=== PATIENT | female | born 1930 | race Caucasian/White ===

== ENCOUNTER 2017-01-30 06:30 | Day surgery (SDC) | payer MEDICAID, MEDICARE, OTHER ==
[2017-01-30] MEDS ORDERED: fentaNYL 100 MCG/2 ML SDV ONE (06:55)
[2017-01-30] MEDS ORDERED: Midazolam 1 MG/ML 2 ML SDV ONE (06:55)
[2017-01-30] MEDS ORDERED: Propofol 200 MG/20 ML SDV ONE (06:55)
[2017-01-30] MEDS ORDERED: Dextrose 5%-Lactated Ringers 1,000 ML IV SCH (07:00)
[2017-01-30] MEDS ORDERED: Albuterol/Ipratropium 3.0-0.5 MG/3 ML Neb Soln NEB ONE (07:30)
[2017-01-30] MEDS ORDERED: ceFAZolin 2 GM in Premix Bag 1 BAG IV ONE (08:00)
[2017-01-30] MEDS ORDERED: Linezolid 200 MG/100 ML Bag IRR ONE (08:00)
[2017-01-30] MEDS ORDERED: Bupivacaine 0.5% 50 ML MDV ONE (08:06)
[2017-01-30] MEDS ORDERED: Lidocaine 1% with EPINEPHrine 1:100,000 50 ML MDV ONE (08:06)
[2017-01-30 09:47] VITALS: BP 143/79
--- NOTE | 2017-02-06 19:04 | OR ---
DATE OF PROCEDURE: 01/30/2017 PREOPERATIVE DIAGNOSIS: Single-chamber cardiac pacemaker pulse generator at end of life. POSTOPERATIVE DIAGNOSES: 1. Single-chamber cardiac pacemaker pulse generator at end of life. 2. Superficially-located pulse generator. OPERATIVE PROCEDURES: 1. Replacement of single-chamber cardiac pacemaker pulse generator ([id number]). 2. Relocation of pacemaker pocket to deeper plane to limit possible erosion and/or infection complications ([id number]). ANESTHESIA: Local plus IV sedation. INDICATION FOR PROCEDURE: This is an 86-year-old with a single-chamber pacemaker, which is now presenting at end of life. Plan is to proceed with a pulse generator replacement. The leads have been tested and found to be satisfactory, though some intraoperative complications regarding management of leads occurs, the leads will not need to be replaced, otherwise. Potential risks including bleeding, infection, possible malfunction of the pacemaker system as well as possibility of cardiopulmonary, septic, or hemorrhagic complications leading to were discussed, and the patient wishes to proceed. Additionally, the patient has quite superficially located pacemaker pocket, which is felt to be a significant risk for either erosion and/or infection. The pocket will be relocated into a deeper plane in the chest wall with the present procedure. DETAILS OF PROCEDURE: The patient was taken to the operating room. After IV sedation was administered, the upper chest and neck areas were prepped and draped. Over the pulse generator, some local anesthetic consisting of Marcaine and lidocaine was placed and transverse incision made and carried down through the skin and subcutaneous tissue through the capsule of the pocket. The capsule was then freed up enough that the pulse generator could be pulled up, and this was then detached. Leads were not tested as they had previously been tested satisfactory, and the new pulse generator reconnected. This is a [employer], model number [id number] and immediate adequate pacing and sensing functions were noted. The upper aspect of the pacemaker pocket was then incised and the dissection then continued down to the plane behind the pectoralis major fascia. At that point, the new pocket was then bluntly created. A TyRx absorbable antibiotic envelope was then placed into the depths of the incision, and the pulse generator then placed into the new pocket. This area had been also irrigated with Zyvox-containing saline solution. The incision was then closed with 2 layers of 3-0 Vicryl stitch deep and a 4-0 Vicryl subcuticular stitch. Dressing was applied. The patient was taken to the recovery room in satisfactory condition. Efren Nair MD /[id number]
== END 2017-01-30 10:46 | disposition home or self-care (01) ==
LOC: JP.SDS 06:30
PROVIDERS: ATTEND Surgery
PROC: 0JPT0PZ Removal of Cardiac Rhythm Related Device from Trunk Subcutaneous Tissue and Fascia, Open Approach (ICD-10-PCS; principal; 2017-01-30)
PROC: 0JH604Z Insertion of Pacemaker, Single Chamber into Chest Subcutaneous Tissue and Fascia, Open Approach (ICD-10-PCS; 2017-01-30)
PROC: 0JWT0PZ Revision of Cardiac Rhythm Related Device in Trunk Subcutaneous Tissue and Fascia, Open Approach (ICD-10-PCS; 2017-01-30)
DX: Z45.010 Encounter for checking and testing of cardiac pacemaker pulse generator [battery] (principal)
CPT/HCPCS: 33222; 33227; C1786; J0690; J2020; J2704; J3010; J7042; J7620; J2250

== ENCOUNTER 2017-08-17 10:49 | Emergency (ER) | payer MEDICARE ==
--- NOTE | 2017-08-17 12:03 | EDM.PDOC ---
ED HPI GENERAL MEDICAL PROBLEM - General Chief Complaint: ENT Problem Stated Complaint: COUGH CHEST IS HURTING Time Seen by Provider: 08/17/17 11:42 Source of Information: Reports: Patient, Family History Limitations: Reports: Other (Dementia) - History of Present Illness INITIAL COMMENTS - FREE TEXT/NARRATIVE: Cait presents with her daughter today. Cait complains of general muscle and joint pain, nausea, sore throat, bilateral hear pain and increased frequency of urination. She reports one episode of vomiting yesterday. She denies change in bowel habits. - Related Data Allergies Allergy/AdvReac Type Severity Reaction Status Date / Time alendronate sodium Allergy GI Verified 08/17/17 11:23 [From Fosamax] intolerance Home Meds: Home Meds Atenolol [Tenormin] 25 mg PO BID 11/14/13 [History] Cholecalciferol (Vitamin D3) [Vitamin D3] 2,000 unit PO DAILY 11/14/13 [History] ClonazePAM [KlonoPIN] 0.125 mg PO BID 11/14/13 [History] Potassium Chloride [Klor-Con 10] 20 meq PO DAILY 11/14/13 [History] Warfarin Sodium 2 mg PO DAILY 11/14/13 [History] Furosemide [Lasix] 20 mg PO DAILY 10/31/14 [History] Isosorbide Mononitrate [Imdur] 30 mg PO DAILY 11/25/14 [History] Pantoprazole [ProTONIX] 40 mg PO DAILY 12/04/14 [History] Valsartan [Diovan] 160 mg PO BID 10/03/15 [History] Levothyroxine 25 mcg PO DAILY 08/11/16 [History] Ibuprofen 400 mg PO BID MDD pain 09/05/16 [History] predniSONE [Prednisone] 5 mg PO DAILY 09/06/16 [History] Acetaminophen [Tylenol] 650 mg PO Q4H PRN #0 tablet 09/09/16 [Rx] Albuterol [Ventolin HFA] 1 - 2 puff INH Q4HR PRN 01/28/17 [History] Polyethylene Glycol 3350 [MiraLAX] 17 gm PO DAILY 01/28/17 [History] Melatonin 5 mg PO BEDTIME PRN 01/30/17 [History] Past Medical History HEENT History: Reports: Allergic Rhinitis, Impaired Vision Cardiovascular History: Reports: Afib, Arrhythmia, High Cholesterol, Hypertension, Pacemaker, SOB on Exertion Other Cardiovascular History: Echo in [place], EF was 55 sick sinus sndrome Respiratory History: Reports: COPD, SOB Gastrointestinal History: Reports: Chronic Constipation, GERD Genitourinary History: Reports: UTI, Recurrent [employer] History: Reports: Musculoskeletal History: Reports: Arthritis, Back Pain, Chronic, Fracture, Neck Pain, Chronic, Osteoarthritis, Osteoporosis Neurological History: Reports: CVA, Neuropathy, Diabetic Psychiatric History: Reports: Anxiety, Panic Attack Endocrine/Metabolic History: Reports: Hypothyroidism, Vitamin D Deficiency Hematologic History: Reports: Anticoagulation Therapy, Blood Transfusion(s) Dermatologic History: Reports: Other (See Below) Other Dermatologic History: rash - Infectious Disease History Infectious Disease History: Reports: Chicken Pox, Measles, Mumps, Shingles - Past Surgical History Head Surgeries/Procedures: Reports: None HEENT Surgical History: Reports: Cataract Surgery, Oral Surgery, Tonsillectomy Respiratory Surgical History: Reports: None Social & Family History - Family History Family Medical History: Noncontributory Cardiac: Reports: CAD - Tobacco Use Smoking Status *Q: Never Smoker Years of Tobacco use: 10 Used Tobacco, but Quit: Yes Month Tobacco Last Used: 11/1971 Second Hand Smoke Exposure: No - Caffeine Use Caffeine Use: Reports: Coffee, Soda - Alcohol Use Days Per Week of Alcohol Use: 0 - Recreational Drug Use Recreational Drug Use: No ED ROS GENERAL - Review of Systems Review Of Systems: See Below Constitutional: Reports: Malaise, Weakness, Fatigue HEENT: Reports: Ear Pain, Throat Pain. Denies: Dental Pain, Ear Discharge, Nosebleed, Nose Pain, Rhinitis, Sinus Problem, Throat Swelling, Vertigo, Vision Change Respiratory: Denies: Shortness of Breath, Wheezing, Cough, Sputum, Hemoptysis Cardiovascular: Denies: Chest Pain, Blood Pressure Problem, Dyspnea on Exertion , Edema, Lightheadedness, Palpitations, PND, Syncope Endocrine: Reports: Fatigue GI/Abdominal: Reports: Nausea, Vomiting, Other (suprapubic pain). Denies: Bloody Stool, Constipation, Difficulty Swallowing, Distension, Stool Incontinence : Reports: Frequency, Incontinence. Denies: Dysuria, Hematuria, Urgency, Urinary Retention Musculoskeletal: Reports: Joint Pain, Muscle Pain Skin: Reports: Dryness. Denies: Rash, Erythema, Wound Neurological: Reports: Headache, Weakness, Other (Patient has a history of dementia). Denies: Numbness, Tingling Psychiatric: Reports: Confusion, Other (at times. ). Denies: Agitation, Anxiety Hematologic/Lymphatic: Reports: No Symptoms Immunologic: Reports: No Symptoms ED EXAM, GENERAL - Physical Exam Exam: See Below Free Text/Narrative:: Cait presents today with general malaise, muscle and joint pain-aching in nature for three days. She also reports bilateral ear pain, throat pain, nausea at times and one episode of vomiting. She states she has been voiding more then usual. She denies fever, chills. Exam Limited By: Other (Patient has active dementia) General Appearance: Alert, WD/WN, Mild Distress Eye Exam: Bilateral Eye: EOMI, Normal Inspection, PERRL Ears: Normal External Exam, Normal Canal, Normal TMs Ear Exam: Bilateral Ear: Auricle Normal, Canal Normal, TM normal Nose: Normal Inspection, Normal Mucosa, No Blood Throat/Mouth: Normal Voice, Other (erythema without exudate noted to pharynx.) Head: Atraumatic, Normocephalic Neck: Normal Inspection, Supple, Non-Tender, Full Range of Motion. No: Lymphadenopathy (R), Lymphadenopathy (L) Respiratory/Chest: No Respiratory Distress, No Accessory Muscle Use, Other ( Breasth sounds clear and decreased at the bases. ) Cardiovascular: Normal Peripheral Pulses, Irregularly Irregular, Other (History of atrial fibrillation, pacemaker. ) Peripheral Pulses: 2+: Radial (L), Radial (R), Dorsalis Pedis (L), Dorsalis Pedis (R) GI/Abdominal: Normal Bowel Sounds, No Organomegaly, No Distention, No Mass, Tender, Other (Tenderness noted to suprapubic area) Back Exam: Normal Inspection, Full Range of Motion. No: CVA Tenderness (R), CVA Tenderness (L), Muscle Spasm, Paraspinal Tenderness, Vertebral Tenderness Extremities: Non-Tender, No Pedal Edema, Normal Capillary Refill, Other (Skin noted to be very dry) Neurological: Alert, Slow to Respond, Other (History of dementia, patient orineted to self, situation not to date or time. ) Psychiatric: Normal Affect, Normal Mood Skin Exam: Warm Lymphatic: No Adenopathy EKG INTERPRETATION EKG Date: 08/17/17 Rhythm: A-Fib EKG Interpretation Comments: Rate controlled at 83 Course - Vital Signs Last Recorded V/S: Last Vital Signs Temp 36.8 C 08/17/17 11:30 Pulse 69 08/17/17 14:28 Resp 14 08/17/17 11:30 BP 154/73 H 08/17/17 14:28 Pulse Ox 93 L 08/17/17 11:30 - Orders/Labs/Meds Orders: Active Orders 24 hr Category Date Time Status EKG Documentation Completion [RC] ASDIRECTED Care 08/17/17 12:41 Active CULTURE STREP A CONFIRMATION [] Stat Lab 08/17/17 11:56 Results STREP SCRN A RAPID W CULT CONF [] Stat Lab 08/17/17 11:56 Results Sodium Chloride 0.9% [Normal Saline] 1,000 ml Med 08/17/17 12:45 Active IV ASDIRECTED Sodium Chloride 0.9% [Saline Flush] Med 08/17/17 12:39 Active 10 ml FLUSH ASDIRECTED PRN Saline Lock Insert [OM.PC] Routine Oth 08/17/17 12:39 Ordered EKG 12 Lead [EK] Routine Ther 08/17/17 12:40 Ordered Medication Orders Sodium Chloride (Normal Saline) 1,000 mls @ 500 mls/hr IV ASDIRECTED EVELYNE Last Admin: 08/17/17 12:48 Dose: 500 mls/hr Sodium Chloride (Saline Flush) 10 ml FLUSH ASDIRECTED PRN PRN Reason: Keep Vein Open Last Admin: 08/17/17 12:48 Dose: 10 ml Labs: Laboratory Tests 08/17/17 08/17/17 08/17/17 Range/Units 12:12 12:46 12:46 WBC 10.4 (4.5-11.0) K/uL RBC 4.74 (3.30-5.50) M/uL Hgb 15.0 D (12.0-15.0) g/dL Hct 45.0 (36.0-48.0) % MCV 95 (80-98) fL MCH 32 H (27-31) pg MCHC 33 (32-36) % Plt Count 190 (150-400) K/uL Neut % (Auto) 79 H (36-66) % Lymph % (Auto) 11 L (24-44) % [place] % (Auto) 8 H (2-6) % Eos % (Auto) 1 L (2-4) % Baso % (Auto) 0 (0-1) % Sodium 140 (140-148) mmol/L Potassium 4.1 (3.6-5.2) mmol/L Chloride 105 (100-108) mmol/L Carbon Dioxide 27 (21-32) mmol/L Anion Gap 8.1 (5.0-14.0) mmol/L BUN 13 (7-18) mg/dL Creatinine 0.9 (0.6-1.0) mg/dL Est Cr Clr Drug Dosing 34.70 mL/min Estimated GFR (MDRD) 59 L (>60) Glucose 148 H (74-106) mg/dL Calcium 8.7 (8.5-10.1) mg/dL Total Bilirubin 1.1 H D (0.2-1.0) mg/dL AST 19 (15-37) U/L ALT 17 (12-78) U/L Alkaline Phosphatase 111 (46-116) U/L Total Protein 6.6 (6.4-8.2) g/dL Albumin 3.0 L (3.4-5.0) g/dL Globulin 3.6 H (2.3-3.5) g/dL Albumin/Globulin Ratio 0.8 L (1.2-2.2) Urine Color Yellow Urine Appearance Slightly cloudy Urine pH 8.0 (4.5-8.0) Ur Specific [place] 1.015 (1.008-1.030) Urine Protein Negative (NEGATIVE) mg/dL Urine Glucose (UA) Normal (NEGATIVE) mg/dL Urine Ketones Negative (NEGATIVE) mg/dL Urine Occult Blood Negative (NEGATIVE) Urine Nitrite Negative (NEGATIVE) Urine Bilirubin Negative (NEGATIVE) Urine Urobilinogen Normal (NORMAL) mg/dL Ur Leukocyte Esterase Negative (NEGATIVE) Urine RBC Not seen (0-5) Urine WBC 0-5 (0-5) Ur Epithelial Cells Moderate Amorphous Sediment Not seen Urine Bacteria Few Urine Mucus Not seen Influenza A positive Rapid strep - negative Patient and her daughter notified of test results. We will administer IV fluids, zofran. Complete additional lab work, renal function prior to administration of oseltamivir. Patient would like to go home today and return tomorrow for recheck if possible. Meds: Medications Generic Name Dose Route Start Last Admin Trade Name Freq PRN Reason Stop Dose Admin Sodium Chloride 1,000 mls @ 500 mls/hr 08/17/17 12:45 08/17/17 12:48 Normal Saline IV 500 mls/hr ASDIRECTED EVELYNE Administration Sodium Chloride 10 ml 08/17/17 12:39 08/17/17 12:48 Saline Flush FLUSH 10 ml ASDIRECTED PRN Administration Keep Vein Open Discontinued Medications Generic Name Dose Route Start Last Admin Trade Name Ish PRN Reason Stop Dose Admin Acetaminophen 1,000 mg 08/17/17 14:17 08/17/17 14:26 Tylenol Extra Strength PO 08/17/17 14:18 1,000 mg ONETIME ONE Administration Ondansetron HCl 4 mg 08/17/17 12:38 08/17/17 12:48 Zofran IVPUSH 08/17/17 12:39 4 mg ONETIME ONE Administration Oseltamivir Phosphate 30 mg 08/17/17 13:30 08/17/17 13:25 Tamiflu PO 08/17/17 13:31 30 mg ONETIME ONE Administration - Re-Assessments/Exams Free Text/Narrative Re-Assessment/Exam: 08/17/17 13:17 Will provide oseltamivir 30mg PO twice a day for 5 days due to CrCl. 08/17/17 14:52 Patient reports she feels better and would like to go home. She will be discharged with family to home. Cait will follow up with Dr. Gill tomorrow for recheck or report to the ER tomorrow to ensure she is not worsening in status. Departure - Departure Time of Disposition: 14:53 Disposition: Home, Self-Care 01 Condition: Fair Clinical Impression: Influenza A, Dehydration, Nausea - Discharge Information Referrals: Dick Gill MD [Primary Care Provider] - Forms: ED Department Discharge Additional Instructions: You are suffering from influenza A. You were given IV fluids for hydration, ondansetron for nausea, acetaminophen for pain and oseltamivir for influenza A. It is best for a loved-one or caregiver to stay with you the next 24 to 48 hours. It is best to keep yourself hydrated, eat regular meals and snacks and return for worsening. You can take Oseltamivir 30mg PO BID for 5 days (first dose given in the ER). You can take acetamonophen (tylenol) 650mg by mouth for pain/fever up to 4 times a day. You can take ondansetron 4mg PO three times a day as needed for nausea. Return for concerns, overall decrease of current function or worsening of cough , change in mental status. - My Orders Last 24 Hours: My Active Orders 08/17/17 11:56 CULTURE STREP A CONFIRMATION [RM] Stat STREP SCRN A RAPID W CULT CONF [RM] Stat 08/17/17 12:39 Sodium Chloride 0.9% [Saline Flush] 10 ml FLUSH ASDIRECTED PRN Saline Lock Insert [OM.PC] Routine 08/17/17 12:40 EKG 12 Lead [EK] Routine 08/17/17 12:41 EKG Documentation Completion [RC] ASDIRECTED 08/17/17 12:45 Sodium Chloride 0.9% [Normal Saline] 1,000 ml IV ASDIRECTED - Assessment/Plan Last 24 Hours: My Active Orders 08/17/17 11:56 CULTURE STREP A CONFIRMATION [RM] Stat STREP SCRN A RAPID W CULT CONF [RM] Stat 08/17/17 12:39 Sodium Chloride 0.9% [Saline Flush] 10 ml FLUSH ASDIRECTED PRN Saline Lock Insert [OM.PC] Routine 08/17/17 12:40 EKG 12 Lead [EK] Routine 08/17/17 12:41 EKG Documentation Completion [RC] ASDIRECTED 08/17/17 12:45 Sodium Chloride 0.9% [Normal Saline] 1,000 ml IV ASDIRECTED Assessment:: Influenza A Dehydration Nausea Plan: You are suffering from influenza A. You were given IV fluids for hydration, ondansetron for nausea, acetaminophen for pain and oseltamivir for influenza A. It is best to keep yourself hydrated, eat regular meals and snacks and return for worsening. You can take Oseltamivir 30mg PO BID for 5 days (first dose given in the ER). You can take acetamonophen (tylenol) 650mg by mouth for pain/fever up to 4 times a day. You can take ondansetron 4mg PO three times a day as needed for nausea. Return for concerns, overall decrease of current function or worsening of cough , change in mental status.
[2017-08-17] MEDS ORDERED: Ondansetron 4 MG/2 ML SDV IVPUSH ONE (12:38)
[2017-08-17] MEDS ORDERED: Sodium Chloride 0.9% 10 ML Syringe FLUSH PRN (12:39)
[2017-08-17] MEDS ORDERED: Sodium Chloride 0.9% 1,000 ML IV SCH (12:45)
[2017-08-17] MEDS ORDERED: Oseltamivir 75 MG Cap PO ONE (13:18)
[2017-08-17] MEDS ORDERED: Oseltamivir 30 MG Cap PO ONE (13:30)
[2017-08-17] MEDS ORDERED: Acetaminophen 500 MG Tab PO ONE (14:17)
[2017-08-17 14:29] VITALS: BP 154/73
== END 2017-08-17 15:19 | disposition home or self-care (01) ==
LOC: JP.ED 10:49
DX: J10.1 Influenza due to other identified influenza virus with other respiratory manifestations (principal); E86.0 Dehydration; R11.0 Nausea; I10 Essential (primary) hypertension; E78.00 Pure hypercholesterolemia, unspecified; J44.9 Chronic obstructive pulmonary disease, unspecified; K21.9 Gastro-esophageal reflux disease without esophagitis; M19.90 Unspecified osteoarthritis, unspecified site; E03.9 Hypothyroidism, unspecified; F41.0 Panic disorder [episodic paroxysmal anxiety]; Z88.8 Allergy status to other drugs, medicaments and biological substances; Z87.440 Personal history of urinary (tract) infections; Z79.01 Long term (current) use of anticoagulants; Z98.49 Cataract extraction status, unspecified eye; Z98.890 Other specified postprocedural states; Z87.891 Personal history of nicotine dependence; Z86.73 Personal history of transient ischemic attack (TIA), and cerebral infarction without residual deficits; Z79.899 Other long term (current) drug therapy
CPT/HCPCS: 36415; 80053; 81001; 85025; 87081; 87430; 87804; 93005; 96361; 96374; 99284; A9270; J2405; J7040; J7050; 93010

== ENCOUNTER 2018-01-02 16:50 | Inpatient (IN) | payer MEDICARE ==
--- NOTE | 2018-01-02 17:06 | EDM.PDOC ---
<Pratima Flaherty - Last Filed: 01/02/18 18:03> ED HPI GENERAL MEDICAL PROBLEM - General Chief Complaint: Lower Extremity Injury/Pain Stated Complaint: WEAK,NOT FEELING WELL Time Seen by Provider: 01/02/18 17:01 Source of Information: Reports: Patient History Limitations: Reports: No Limitations - History of Present Illness INITIAL COMMENTS - FREE TEXT/NARRATIVE: pt arrived with pain in her rt hip and in her left elebow. Onset: Other (pt fell a week ago and there was concern that she had a hairline fracture in her pelvis. . She was unable to bear weight on the rt leg. ) Duration: Day(s):, Getting Worse Location: Reports: Upper Extremity, Left, Lower Extremity, Right Associated Symptoms: Reports: Other (history of a UTI) - Related Data Allergies Allergy/AdvReac Type Severity Reaction Status Date / Time alendronate sodium Allergy GI Verified 08/17/17 11:23 [From Fosamax] intolerance Home Meds: Home Meds Atenolol [Tenormin] 25 mg PO BID 11/14/13 [History] Cholecalciferol (Vitamin D3) [Vitamin D3] 2,000 unit PO DAILY 11/14/13 [History] ClonazePAM [KlonoPIN] 0.125 mg PO BID 11/14/13 [History] Potassium Chloride [Klor-Con 10] 20 meq PO DAILY 11/14/13 [History] Warfarin Sodium 2 mg PO DAILY 11/14/13 [History] Furosemide [Lasix] 20 mg PO DAILY 10/31/14 [History] Isosorbide Mononitrate [Imdur] 30 mg PO DAILY 11/25/14 [History] Pantoprazole [ProTONIX Granules] 40 mg PO DAILY 12/04/14 [History] Valsartan [Diovan] 160 mg PO BID 10/03/15 [History] Levothyroxine 25 mcg PO DAILY 08/11/16 [History] Ibuprofen 400 mg PO BID MDD pain 09/05/16 [History] predniSONE [Prednisone] 5 mg PO DAILY 09/06/16 [History] Acetaminophen [Tylenol] 650 mg PO Q4H PRN #0 tablet 09/09/16 [Rx] Albuterol [Ventolin HFA] 1 - 2 puff INH Q4HR PRN 01/28/17 [History] Polyethylene Glycol 3350 [MiraLAX] 17 gm PO DAILY 01/28/17 [History] Melatonin 5 mg PO BEDTIME PRN 01/30/17 [History] Past Medical History HEENT History: Reports: Allergic Rhinitis, Impaired Vision Cardiovascular History: Reports: Afib, Arrhythmia, High Cholesterol, Hypertension, Pacemaker, SOB on Exertion Other Cardiovascular History: Echo in [place], EF was 55 sick sinus sndrome Respiratory History: Reports: COPD, SOB Gastrointestinal History: Reports: Chronic Constipation, GERD Genitourinary History: Reports: UTI, Recurrent EMERGENCY MEDICAL TECHNICIAN/DRIVER History: Reports: Musculoskeletal History: Reports: Arthritis, Back Pain, Chronic, Fracture, Neck Pain, Chronic, Osteoarthritis, Osteoporosis Neurological History: Reports: CVA, Neuropathy, Diabetic Psychiatric History: Reports: Anxiety, Panic Attack Endocrine/Metabolic History: Reports: Hypothyroidism, Vitamin D Deficiency Hematologic History: Reports: Anticoagulation Therapy, Blood Transfusion(s) Dermatologic History: Reports: Other (See Below) Other Dermatologic History: rash - Infectious Disease History Infectious Disease History: Reports: Chicken Pox, Measles, Mumps, Shingles - Past Surgical History Head Surgeries/Procedures: Reports: None HEENT Surgical History: Reports: Cataract Surgery, Oral Surgery, Tonsillectomy Respiratory Surgical History: Reports: None Social & Family History - Family History Family Medical History: Noncontributory Cardiac: Reports: CAD - Tobacco Use Smoking Status *Q: Never Smoker Years of Tobacco use: 10 Used Tobacco, but Quit: Yes Month Tobacco Last Used: 11/1971 Second Hand Smoke Exposure: No - Caffeine Use Caffeine Use: Reports: Coffee, Soda - Alcohol Use Days Per Week of Alcohol Use: 0 - Recreational Drug Use Recreational Drug Use: No Review of Systems - Review of Systems Review Of Systems: See Below Constitutional: Reports: No Symptoms Eyes: Reports: No Symptoms Ears: Reports: No Symptoms Nose: Reports: No Symptoms Mouth/Throat: Reports: No Symptoms Respiratory: Reports: No Symptoms Cardiovascular: Reports: No Symptoms GI/Abdominal: Reports: No Symptoms Musculoskeletal: Reports: Other (pain in the rt hip and in the left elebow. ) Skin: Reports: No Symptoms Neurological: Reports: No Symptoms, Other ( slight confusion) Psychiatric: Reports: No Symptoms ED EXAM, GENERAL - Physical Exam Exam: See Below Free Text/Narrative:: pt has sig swelling of her rt elebow and she has alot of pain when she moves it. She has pain in the rt hip and pelvis AREA AND SHE IS NOT ABLE TO BEAR WEIGHT. Exam Limited By: No Limitations General Appearance: Alert, Anxious, Moderate Distress, Other (PUPILS EQUAL AND REACTIVE. ) Ears: Normal TMs Nose: Normal Inspection Throat/Mouth: Normal Inspection Head: Atraumatic Neck: Normal Inspection Respiratory/Chest: No Respiratory Distress Cardiovascular: Regular Rate, Rhythm GI/Abdominal: Soft, Non-Tender (Female) Exam: Deferred Rectal (Female) Exam: Deferred Back Exam: Normal Inspection Extremities: Other (PT HAS ALOT OF PAIN WHEN HER HIP IS MOVED ON THE RT SIDE. ) Neurological: Alert, Oriented Course - Vital Signs Last Recorded V/S: Last Vital Signs Temp 99.1 F 01/02/18 17:16 Pulse 67 01/02/18 21:12 Resp 16 01/02/18 17:16 BP 148/79 H 01/02/18 21:12 Pulse Ox 98 01/02/18 21:12 - Orders/Labs/Meds Orders: Active Orders 24 hr Category Date Time Status Elbow Min 3V Lt [CR] Stat Exams 01/02/18 17:14 Taken Hip Min 2V or 3V w Pelvis Lt [CR] Stat Exams 01/02/18 17:12 Taken Hip wo Cont Rt [CT] Stat Exams 01/02/18 17:43 Stop Req Pelvis wo Cont [CT] Stat Exams 01/02/18 17:43 Ordered UA W/MICROSCOPIC [URIN] Urgent Lab 01/02/18 17:20 Ordered Sodium Chloride 0.9% [Saline Flush] Med 01/02/18 17:25 Active 10 ml FLUSH ASDIRECTED PRN Saline Lock Insert [OM.PC] Routine Oth 01/02/18 17:25 Ordered Medication Orders Sodium Chloride (Saline Flush) 10 ml FLUSH ASDIRECTED PRN PRN Reason: Keep Vein Open Last Admin: 01/02/18 17:58 Dose: 10 ml Labs: Laboratory Tests 01/02/18 01/02/18 Range/Units 17:30 17:30 WBC 10.5 (4.5-11.0) K/uL RBC 4.29 (3.30-5.50) M/uL Hgb 13.7 (12.0-15.0) g/dL Hct 41.0 (36.0-48.0) % MCV 96 (80-98) fL MCH 32 H (27-31) pg MCHC 33 (32-36) % Plt Count 254 (150-400) K/uL Neut % (Auto) 74 H (36-66) % Lymph % (Auto) 13 L (24-44) % [place] % (Auto) 12 H (2-6) % Eos % (Auto) 1 L (2-4) % Baso % (Auto) 0 (0-1) % Sodium 135 L (140-148) mmol/L Potassium 4.7 (3.6-5.2) mmol/L Chloride 102 (100-108) mmol/L Carbon Dioxide 25 (21-32) mmol/L Anion Gap 12.7 (5.0-14.0) mmol/L BUN 12 (7-18) mg/dL Creatinine 1.0 (0.6-1.0) mg/dL Est Cr Clr Drug Dosing 30.47 mL/min Estimated GFR (MDRD) 53 L (>60) Glucose 121 H (74-106) mg/dL Calcium 9.0 (8.5-10.1) mg/dL Total Bilirubin 1.1 H (0.2-1.0) mg/dL AST 23 (15-37) U/L ALT 15 (12-78) U/L Alkaline Phosphatase 166 H (46-116) U/L Total Protein 6.1 L (6.4-8.2) g/dL Albumin 2.6 L (3.4-5.0) g/dL Globulin 3.5 (2.3-3.5) g/dL Albumin/Globulin Ratio 0.7 L (1.2-2.2) Meds: Medications Generic Name Dose Route Start Last Admin Trade Name Freq PRN Reason Stop Dose Admin Sodium Chloride 10 ml 01/02/18 17:25 01/02/18 17:58 Saline Flush FLUSH 10 ml ASDIRECTED PRN Administration Keep Vein Open Discontinued Medications Generic Name Dose Route Start Last Admin Trade Name Freq PRN Reason Stop Dose Admin Hydromorphone HCl 0.5 mg 01/02/18 17:21 01/02/18 18:02 Dilaudid IVPUSH 01/02/18 17:22 0.25 mg ONETIME ONE Administration - Re-Assessments/Exams Free Text/Narrative Re-Assessment/Exam: 01/02/18 17:52 PT ARRIVED WITH PAIN IN THE PELVIS AND RT HIP. sHE WAS NOT ABLE TO BEAR WEIGHT. pLAIN FILMS ARE DIFFICULT TO INTERPRET AND FOR THAT REASON A CAT SCAN OF THE PELVIS AND HIP WAS OBTAINED. CELLULITIS IS NOTED OF THE RT ELEBOW. 01/02/18 17:52 01/02/18 18:03 Departure - Departure Disposition: Admitted As Inpatient 67 Clinical Impression: Fracture of right inferior pubic ramus Qualifiers: Encounter type: initial encounter Fracture type: closed Qualified Code(s): S32.591A - Other specified fracture of right pubis, initial encounter for closed fracture Fracture of right superior pubic ramus Qualifiers: Encounter type: initial encounter Fracture type: closed Qualified Code(s): S32.511A - Fracture of superior rim of right pubis, initial encounter for closed fracture - Discharge Information Referrals: Dick Gill MD [Primary Care Provider] - Forms: ED Department Discharge <OfficerRd - Last Filed: 01/02/18 22:13> Course - Re-Assessments/Exams Free Text/Narrative Re-Assessment/Exam: Took over care from Dr. Flaherty at 1900 hrs. 01/02/18 21:54 Departure - Departure Time of Disposition: 22:12 Condition: Fair - Assessment/Plan Plan: Assessment Acuity = acute Site and laterality = multiple pubic rami fracture inferior and superior with possible nondisplaced fracture lateral epicondyles left elbow Etiology = secondary to fall Manifestations = pain Location of injury = Home Lab values = CBC unremarkable sodium low at 135 consistent hyponatremia, albumin low at 2.6 consistent hypoalbuminemia plain film of the left elbow reveals suspicious nondisplaced step-off cortical fracture lateral epicondyles on the left side, CT scan of the pelvis reveals right pubic rami, body and anterior column of the right acetabulum and left sacral fractures Plan Called discussed case with Colt Hummel at [facility], also discussed case with Dr. Salguero [facility] both recommended posterior splint for the possible elbow fracture weightbearing as tolerated, pain control physical therapy probable assisted placement for rehabilitation on the pelvic fractures. Called and discussed case with Dr. Kwong physician showroom sales consultant agreed to come and evaluate the patient in the hospital for admission This note was dictated using [employer]al[employer] voice recognition software please call with any questions on syntax or adama.
[2018-01-02] MEDS ORDERED: Sodium Chloride 0.9% 10 ML Syringe FLUSH PRN (17:25)
[2018-01-02] MEDS: HYDROmorphone 0.5 MG/0.5 ML Syringe IVPUSH ONE ×3 (17:59→18:02)
--- NOTE | 2018-01-02 22:34 | PCM.PRNOTE ---
ED JOINT REDUCTION/SPLINTING - Joint Reduction Pre-procedure NV status: Normal - Splinting Splint Site: left arm Pre-procedure NV status: Normal Post-procedure NV status: Normal Splint Material: Fiberglass Splint Design: Posterior Applied & Form Fitted By: Provider, Nurse, Other (MS) Provider Post-Splint Application NV Check: NV Status Normal, Good Position Complications: No
[2018-01-02] MEDS ORDERED: Melatonin 3 MG Tab PO PRN (23:38)
[2018-01-02] MEDS ORDERED: Albuterol 8 GM Inhaler INH PRN (23:38)
[2018-01-03] MEDS ORDERED: Melatonin 3 MG Tab PO PRN (00:12)
[2018-01-03] MEDS: Acetaminophen 325 MG Tab PO PRN ×3 (02:16→18:10)
--- NOTE | 2018-01-03 05:14 | HP ---
IDENTIFYING DATA: Cait Werner is an 87-year-old single female from [place], [place]. CHIEF COMPLAINT: Pain and inability to weight bear. HISTORY OF PRESENT ILLNESS: This elderly female has a history of multiple chronic health problems including progressive Alzheimer's dementia with cognitive impairment. She currently resides with an adult daughter with full-time [id number] supervision. Approximately two weeks ago, she was noted to have had a fall in the bathroom and sustained an abrasion to the right elbow with x-ray showing no evidence of bony injury though with complaints of pelvic pain. X-rays of the pelvis were obtained and confirmed presence of right pubic rami and right pubic body fractures. She was relatively comfortable and allowed to return home with family's monitoring, with encouragement to use a walker as an ambulatory aid and provide Tylenol for pain. Today with complaints of increasing pain, she had inability to ambulate, and therefore, the family returned to the emergency room with Cait. She has had no subsequent falls, though with developing weakness, was assisted to the floor today. Also began to complain of left elbow pain with x-rays suggesting the possibility of a medial epicondylar fracture of unknown source. She does have a recognized history of vertebral compression fracture and chronic osteoporosis with use of calcium and vitamin D supplementation. PAST MEDICAL HISTORY/PREVIOUS SURGERIES: Include bilateral cataract extractions and femoral artery stenting for reasons of peripheral vascular disease. Additionally, she has a history of pacemaker implant, congestive heart failure, ischemic heart disease, and chronic atrial fibrillation with Coumadin anticoagulant therapy. 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 She has a history of temporal arteritis, type 2 diabetes, chronic rheumatoid arthritis, and hypothyroidism. HABITS: Tobacco use, none. Alcohol, none. Minimal caffeinated beverage intake. Appetite is diminishing. She eats with encouragement. Family does provide nutritional supplements. IMMUNIZATIONS: She is said to have received her annual influenza vaccine. Has had a tetanus booster within the last five years' time. Pneumococcal vaccine in 2005. ALLERGIES: REPORTED TO ALENDRONIC ACID, FOSAMAX, AND SULFA. CURRENT MEDICATIONS: Clonazepam 0.125 mg sublingually t.i.d., triamcinolone ointment applied b.i.d. p.r.n. to itch, potassium chloride 20 mEq daily, magnesium 200 mg 1 to 2 times daily, furosemide 20 mg daily, warfarin 2 mg daily or as directed by [facility], paroxetine mg daily, levothyroxine 25 mcg daily, valsartan 160 mg b.i.d., ranitidine 75 mg daily, metoprolol tartrate 25 mg b.i.d., MiraLAX 17 g daily, isosorbide mononitrate 30 mg daily, cholecalciferol 2000 International Units daily. SOCIAL HISTORY: Impaired following her previous CVA four years ago. She has resided with her adult daughter for many years' time. She no longer drives. Visual impairment has led to reduced reading ability. She is able to watch television. Hearing is acceptable. She rests comfortably at night, frequently up in the chair. She is incontinent of urine. Constipation is managed with use of MiraLAX. FAMILY HISTORY: Unable to provide factual information. REVIEW OF SYSTEMS: NEUROLOGIC: Visual impairment, cognitive impairment secondary to Alzheimer's type dementia and previous left mid cerebral artery CVA. No history of seizures. Family denies glaucoma. No lower extremity weakness. CARDIAC: Chronic atrial fibrillation, congestive heart failure, and ischemic heart disease with pacemaker in place. No history of rheumatic fever or noted murmur. No recent chest pain or syncope. RESPIRATORY: Family denies asthma, emphysema, cough, sputum production, or recent URIs. GI: Decreased appetite. No dyspepsia, nausea, emesis, hepatitis, gallbladder disease, melena, or hematochezia. : Incontinent of urine. She has had a recent urinary tract infection, treated with a seven-day course of Cipro. No fevers, chills, or CVA tenderness. No gross hematuria. MUSCULOSKELETAL: General arthralgias and weakness. History of lumbar vertebral compression fracture, recent fall with right skip-pelvic fracture as well as questionable fracture of the left medial epicondyle of the elbow. PHYSICAL EXAMINATION: GENERAL: Appearance is that of a somnolent elderly female, resting comfortably in the hospital bed. She does open her eyes to command, engages in limited conversation, confused, disoriented to place and time. VITAL SIGNS: On admission, temperature 99.1 degrees, pulse rate 67, blood pressure 148/79, respiratory rate 16, and O2 saturations 98% on room air. HEENT: Hearing appears intact. Canals and TMs are normal. Extraocular eye movements are intact and symmetrical. No nystagmus. Sclerae anicteric. No nasal congestion. Oral mucosa is mildly dry. No facial asymmetry. Speech is clear. NECK: Brisk carotid pulses. No bruits, JVD, adenopathy, or thyromegaly. LUNGS: Clear, resonant, nontachypneic, symmetrical aeration. HEART: Regular without murmurs or gallops. Controlled rate. ABDOMEN: Thin, soft, nontender, and nondistended. No organomegaly. Active sounds. No abdominal bruits. Good femoral pulses. No CVA pain. EXTREMITIES: Cool to touch. Palpable radial, posterior tibial, and dorsal pedal pulses. Mild pitting edema at the legs. No current open skin lesions. Symmetrical, generally revealing of a mild decrease in strength bilaterally. LABORATORY AND DIAGNOSTIC DATA: Labs on admission: WBC 10.5, hemoglobin 13.7, hematocrit 41, platelet count 254,000. Sodium 135, potassium 4.7, BUN 12, creatinine 1, glucose 121, calcium 9. Alkaline phosphatase 166, AST 23. CT imaging of the pelvis again confirms right skip-pelvic fractures secondary to fall of two weeks ago, nondisplaced and closed in presentation. X-ray of the left elbow suggested a medial epicondylar fracture, nondisplaced; elbow splint is in place. IMPRESSIONS: 1. Falls with right skip-pelvic and left epicondylar fracture of the elbow in an elderly female with resultant pain. 2. General instability, history of rheumatoid arthritis, temporal arteritis, and progressive Alzheimer's type dementia. 3. History of left mid cerebral artery cerebrovascular accident, remains on chronic Coumadin anticoagulant therapy. 4. Ischemic heart disease with sick sinus syndrome, pacemaker in place, and congestive heart failure. 5. Hypertension. 6. Reports of type 2 diabetes without pharmacologic control. 7. Hypothyroidism. 8. Peripheral vascular disease, chronic, stable. 9. Osteoporosis with lumbar vertebral compression fracture. 10.Chronic dyspepsia. PLAN: The patient appears to be stable for admission to the medical floor. We will provide analgesic services, assistance with performance of ADLs, and continued supervision. Physical therapy evaluation is requested in a.m. Likely will require rehabilitative stay in a local custodial, family is aware and agreeable. We will continue with home medications as well as p.r.n. use of acetaminophen. No independent ambulation is anticipated in light of Coumadin anticoagulant therapy. A protime and INR in a.m. will be reviewed. She is to remain on Coumadin as well as remainder of her maintenance medications. Full code status is requested. Standard geriatric diet to be offered. Ivan Kwong MD /[id number]
--- NOTE | 2018-01-03 06:29 | PN ---
DATE OF SERVICE: 01/03/2018 SUBJECTIVE: An 87-year-old female with a noted history of chronic progressive dementia with functional impairment as well as chronic atrial fibrillation, peripheral vascular disease, type 2 diabetes, hypertension, and rheumatoid arthritis was admitted with weakness and complaints of pelvic pain and left elbow pain with recent falls. She has had recognized right skip-pelvic fractures leading to general impairment. Additionally, x-rays suggested a nondisplaced epicondylar fracture of the left elbow. Through the nighttime hours, she has had occasional moaning during sleep time reported by nursing staff. Though when questioned, she denies pain. Seems to be reasonably comfortable with use of acetaminophen. She is drinking modest amounts of liquids. Pleasant, confused, conversant, not attempting to rise and ambulate independently. She is incontinent of urine. OBJECTIVE: VITAL SIGNS: Blood pressure 158/64, respiratory rate 17, pulse rate 78 and irregular, temperature 37.3. LUNGS: Clear. HEART: Irregularly irregular, controlled rate. ABDOMEN: Soft and nontender. EXTREMITIES: Left arm immobilized in a posterior splint. She is resting comfortably in bed. LABORATORY DATA: Protime, INR today is supratherapeutic at 4.4, with Coumadin therapies. IMPRESSION AND PLAN: 1. Falls with right skip pelvic fracture and left nondisplaced epicondylar fracture of the elbow. PT/OT services are requested to evaluate today. Family is noted as primary caregivers are not able to provide sufficient support at the present time. Therefore, are agreeable to rehab stay at the prison setting. Discharge planning is to begin investigation of prison placement at the time of discharge. In the interim, we will continue with assistance with ADL performance. Acetaminophen p.r.n. Encourage rest and limit physical activity. 2. Chronic health problems include chronic atrial fibrillation on Coumadin anticoagulant therapy with suprapubic INR. We will hold Coumadin today. Daily protimes are requested. 3. Peripheral vascular disease, hypertension, type 2 diabetes, and chronic rheumatoid arthritis. All currently unchanged. Continue to monitor. Ivan Kwong MD /[id number]
[2018-01-03] MEDS: Levothyroxine 25 MCG Tab PO SCH (08:15)
[2018-01-03] MEDS: Isosorbide Mononitrate 30 MG Tab.ER PO SCH (08:16)
[2018-01-03] MEDS: Polyethylene Glycol 3350 Powder 17 GM Packet PO SCH (08:17)
[2018-01-03] MEDS: Famotidine 20 MG Tab PO SCH (08:17)
[2018-01-03] MEDS: ClonazePAM 0.5 MG Tab PO SCH ×2 (08:22→20:52)
[2018-01-03] MEDS: Potassium Chloride 20 MEQ Tab.ER PO SCH (08:26)
[2018-01-03] MEDS ORDERED: Atenolol 25 MG Tab PO SCH (09:00)
[2018-01-03] MEDS ORDERED: WARFARIN SODIUM 2 MG PO SCH (09:00)
[2018-01-03] MEDS ORDERED: Ibuprofen 200 MG Tab PO SCH (09:00)
[2018-01-03] MEDS ORDERED: Pantoprazole 40 MG Delayed-Release Granules 1 Packet PO SCH (09:00)
[2018-01-03] MEDS ORDERED: predniSONE 5 MG Tab PO SCH (09:00)
[2018-01-03] MEDS: Melatonin 3 MG Tab PO SCH (20:41)
[2018-01-03] MEDS: Metoprolol Tartrate 25 MG Tab PO SCH (20:52)
[2018-01-04] MEDS: Acetaminophen 325 MG Tab PO PRN ×3 (07:39→16:49)
[2018-01-04] MEDS: Levothyroxine 25 MCG Tab PO SCH (07:40)
[2018-01-04] MEDS: Isosorbide Mononitrate 30 MG Tab.ER PO SCH (09:03)
[2018-01-04] MEDS: Polyethylene Glycol 3350 Powder 17 GM Packet PO SCH (09:04)
[2018-01-04] MEDS: Metoprolol Tartrate 25 MG Tab PO SCH ×2 (09:04→20:47)
[2018-01-04] MEDS: Potassium Chloride 20 MEQ Tab.ER PO SCH (09:04)
[2018-01-04] MEDS: Famotidine 20 MG Tab PO SCH (09:05)
[2018-01-04] MEDS: ClonazePAM 0.5 MG Tab PO SCH ×2 (09:17→20:51)
--- NOTE | 2018-01-04 12:18 | PCM.PN ---
- General Info Date of Service: 01/04/18 Subjective Update: Ms. Werner has been stable since admission early yesterday morning. She is become progressively weaker at home and fell, suffering several pelvic fractures as well as fracture of her left epicondyles. Pain control has been adequate, but certainly increases with any type of movement. He'll signs have been stable and she has remained afebrile. Functional Status: Reports: Tolerating Diet, Urinating - Review of Systems General: Reports: Weakness. Denies: Fever, Chills Pulmonary: Reports: No Symptoms Cardiovascular: Reports: No Symptoms Gastrointestinal: Reports: No Symptoms Musculoskeletal: Reports: Arm Pain, Other (Pelvic pain) - Patient Data Vitals - Most Recent: Last Vital Signs Temp 96.5 F 01/04/18 11:24 Pulse 82 01/04/18 11:24 Resp 18 01/04/18 11:24 BP 140/64 01/04/18 11:24 Pulse Ox 96 01/04/18 11:24 Weight - Most Recent: 127 lb 3.2 oz I&O - Last 24 Hours: Intake & Output 01/03/18 01/04/18 01/04/18 22:59 06:59 14:59 Intake Total 600 860 Balance 600 860 Lab Results Last 24 Hours: Laboratory Results - last 24 hr 01/04/18 Range/Units 05:59 PT 40.5 H (9.5-12.0) sec INR 3.59 H (0.80-1.20) Med Orders - Current: Current Medications Acetaminophen (Tylenol) 650 mg PO Q4H PRN PRN Reason: Pain Last Admin: 01/04/18 07:39 Dose: 650 mg Clonazepam (Klonopin) 0.125 mg PO BID [facility] Last Admin: 01/04/18 09:17 Dose: 0.125 mg Famotidine (Pepcid) 20 mg PO DAILY [facility] Last Admin: 01/04/18 09:05 Dose: 20 mg Isosorbide Mononitrate (Imdur) 30 mg PO DAILY [facility] Last Admin: 01/04/18 09:03 Dose: 30 mg Levothyroxine Sodium (Levothyroxine) 25 mcg PO ACBREAKFAST [facility] Last Admin: 01/04/18 07:40 Dose: 25 mcg Melatonin (Melatonin) 3 mg PO BEDTIME [facility] Last Admin: 01/03/18 20:41 Dose: 3 mg Melatonin (Melatonin) 3 mg PO BEDTIME PRN PRN Reason: Insomnia Metoprolol Tartrate (Lopressor) 25 mg PO BID [facility] Last Admin: 01/04/18 09:04 Dose: 25 mg Polyethylene Glycol (Miralax) 17 gm PO DAILY [facility] Last Admin: 01/04/18 09:04 Dose: 17 gm Potassium Chloride (Klor-Con M20) 20 meq PO DAILY [facility] Last Admin: 01/04/18 09:04 Dose: 20 meq Sodium Chloride (Saline Flush) 10 ml FLUSH ASDIRECTED PRN PRN Reason: Keep Vein Open Last Admin: 01/02/18 17:58 Dose: 10 ml Valsartan (Diovan) 160 mg PO BID [facility] Last Admin: 01/04/18 09:03 Dose: 160 mg Discontinued Medications Albuterol (Ventolin Hfa) 0 gm INH Q4H PRN PRN Reason: Wheezing Stop: 01/03/18 00:10 Atenolol (Tenormin) 25 mg PO BID [facility] Last Admin: 01/03/18 08:18 Dose: 25 mg Hydromorphone HCl (Dilaudid) 0.5 mg IVPUSH ONETIME ONE Stop: 01/02/18 17:22 Last Admin: 01/02/18 18:02 Dose: 0.25 mg Ibuprofen (Motrin) 400 mg PO BID [facility] Melatonin (Melatonin) 5 mg PO BEDTIME PRN PRN Reason: Insomnia Pantoprazole Sodium (Protonix Granules) 40 mg PO DAILY [facility] Prednisone (Prednisone) 5 mg PO DAILY [facility] - Exam Quality Assessment: DVT Prophylaxis General: Alert, Cooperative, Mild Distress Lungs: Clear to Auscultation, Normal Respiratory Effort Cardiovascular: Regular Rate, Regular Rhythm, No Murmurs GI/Abdominal Exam: Soft, Non-Tender, No Organomegaly, No Distention Extremities: Non-Tender, No Pedal Edema Skin: Warm, Dry - Problem List Review Problem List Initiated/Reviewed/Updated: Yes - My Orders Last 24 Hours: My Active Orders 01/03/18 21:00 Metoprolol Tartrate [Lopressor] 25 mg PO BID - Plan Plan:: ASSESSMENT AND PLAN PELVIC FRACTURES-radiologic studies have been reviewed by orthopedics and she's not felt to require surgical intervention. Significant pain with transfers and any attempt at standing, will require jail placement for ongoing management until fractures have healed -Pain medication as needed -Outpatient follow-up with orthopedic surgery -longterm admission LEFT EPICONDYLAR FRACTURE -Pain medication as above -Outpatient follow-up with orthopedic surgery -Continue current splint ATRIAL FIBRILLATION WITH RAPID VENTRICULAR RESPONSE-on long-term oral anticoagulation with warfarin. INR supratherapeutic at the time of admission, better today but still elevated -Hold warfarin today, plan to resume tomorrow -INR follow-up as outpatient DEMENTIA MAINTENANCE ISSUES -DVT prophylaxis; current therapy with warfarin should provide adequate DVT prophylaxis -GI prophylaxis; not indicated -Son catheter; not indicated -Nutrition; regular diet -Nicotine dependence; not required CODE STATUS-FULL CODE ADMISSION STATUS-patient will be admitted to inpatient status, expect at least a 2 night hospital stay for evaluation and management of problems as outlined above. At the time of this admission I do not reasonably expected evaluation and management of this problem will require more than a 96 hour hospital stay. DISPOSITION-anticipate discharge to home after the hospital stay. PRIMARY CARE PROVIDER-Dr. Gill
--- NOTE | 2018-01-04 14:28 | PCM.DCSUM1 ---
Discharge Summary - Hospital Course Brief History: Ms. Werner is an 87-year-old woman who was admitted through the emergency department with increased pelvic pain, secondary to known pelvic fracture. - Discharge Data Discharge Date: 01/05/18 Discharge Disposition: DC/Tfer to SNF 03 Condition: Fair - Discharge Diagnosis/Problem(s) (1) Multiple pelvic fractures SNOMED Code(s): 592611174 ICD Code: S32.810A - MULTIPLE FX OF PELVIS W STABLE DISRUPT OF PELVIC RING, INIT Status: Acute Current Visit: Yes (2) Fracture of lateral epicondyle of left humerus SNOMED Code(s): 865216727 ICD Code: S42.432A - DISP FX (AVULSION) OF LATERAL EPICONDYLE OF L HUMERUS, INIT Status: Acute Current Visit: Yes (3) Dehydration SNOMED Code(s): 46220817 ICD Code: E86.0 - DEHYDRATION Status: Acute Current Visit: No (4) Dementia in Alzheimer's disease with delirium SNOMED Code(s): 276313517544351 ICD Code: G30.9 - ALZHEIMER'S DISEASE, UNSPECIFIED; F02.80 - DEMENTIA IN OTH DISEASES CLASSD ELSWHR W/O BEHAVRL DISTURB; F05 - DELIRIUM DUE TO KNOWN PHYSIOLOGICAL CONDITION Status: Chronic Current Visit: No (5) Stage III chronic kidney disease SNOMED Code(s): 379638677 ICD Code: N18.3 - CHRONIC KIDNEY DISEASE, STAGE 3 (MODERATE) Status: Chronic Current Visit: No - Patient Summary/Data Consults: Consultations 01/02/18 23:42 Consult to Physical Therapy [PT Evaluation and Treatment] [CONS] Routine Please Evaluate and Treat. PT Reason for Consult: pelvic and left elbow fx secondary to fall This query below is only for informational purposes and is not editable. Admission Diagnosis/Problem: Fracture of pelvis Hospital Course: Ms. Werner is an 87-year-old woman who fell approximately 2 weeks prior to admission. She was seen and evaluated in the emergency department and identified to have pubic rami fractures at that time. She was discharged home, weightbearing as tolerated with use of a walker. She was brought back into the emergency department on the evening of admission because of increased pelvic pain, family denied any recurrent falls. X-rays confirm several pelvic fractures not identified previously as well as a fracture of the left epicondyle. She does have known underlying dementia and was unable to provide significant history concerning recent symptoms or events. Given that she was unable to ambulate she was admitted to the hospital for ongoing pain control and to facilitate custodial placement. She was given IV fluids for hydration and management of her dementia, as well as pain medication as needed. X-rays and findings were reviewed with 2 separate orthopedic surgeons who both confirm that the patient did not require further evaluation or surgical intervention. She will be discharged to the custodial for restorative physical therapy and occupational therapy. Activity will be as tolerated and she will resume her usual diet. Follow-up with primary care will be as needed at the custodial. - Patient Instructions Diet: Usual Diet as Tolerated Activity: As Tolerated Other/Special Instructions: Daily physical therapy and occupational therapy while at the custodial. Please obtain a follow-up INR on January 06. - Discharge Plan Prescriptions/Med Rec: Melatonin 9 mg PO BEDTIME PRN #90 tablet PRN Reason: Insomnia oxyCODONE 5 mg PO Q4H #20 tab Home Medications: Home Meds Cholecalciferol (Vitamin D3) [Vitamin D3] 2,000 unit PO DAILY 11/14/13 [History] ClonazePAM [KlonoPIN] 0.125 mg PO BID 11/14/13 [History] Potassium Chloride [Klor-Con 10] 20 meq PO DAILY 11/14/13 [History] Warfarin Sodium 2 mg PO DAILY 11/14/13 [History] Furosemide [Lasix] 20 mg PO DAILY 10/31/14 [History] Isosorbide Mononitrate [Imdur] 30 mg PO DAILY 11/25/14 [History] Pantoprazole [ProTONIX Granules] 40 mg PO DAILY 12/04/14 [History] Valsartan [Diovan] 160 mg PO BID 10/03/15 [History] Levothyroxine 25 mcg PO DAILY 08/11/16 [History] Ibuprofen 400 mg PO BID [facility] pain 09/05/16 [History] Acetaminophen [Tylenol] 650 mg PO Q4H PRN #0 tablet 09/09/16 [Rx] Albuterol [Ventolin HFA] 1 - 2 puff INH Q4HR PRN 01/28/17 [History] Polyethylene Glycol 3350 [MiraLAX] 17 gm PO DAILY 01/28/17 [History] Metoprolol Tartrate 25 mg PO BID 01/03/18 [History] PARoxetine [Paxil] 5 mg PO DAILY 01/03/18 [History] Ranitidine [Zantac] 75 mg PO DAILY 01/03/18 [History] Melatonin 9 mg PO BEDTIME PRN #90 tablet 01/04/18 [Rx] oxyCODONE 5 mg PO Q4H #20 tab 01/04/18 [Rx] Referrals: Dick Gill MD [Primary Care Provider] - - Discharge Summary/Plan Comment DC Time >30 min.: No - Patient Data Vitals - Most Recent: Last Vital Signs Temp 96.5 F 01/04/18 11:24 Pulse 82 01/04/18 11:24 Resp 18 01/04/18 11:24 BP 140/64 01/04/18 11:24 Pulse Ox 96 01/04/18 11:24 Weight - Most Recent: 127 lb 3.2 oz I&O - Last 24 hours: Intake & Output 01/03/18 01/04/18 01/04/18 22:59 06:59 14:59 Intake Total 600 1100 Balance 600 1100 Lab Results - Last 24 hrs: Laboratory Results - last 24 hr 01/04/18 Range/Units 05:59 PT 40.5 H (9.5-12.0) sec INR 3.59 H (0.80-1.20) Med Orders - Current: Current Medications Acetaminophen (Tylenol) 650 mg PO Q4H PRN PRN Reason: Pain Last Admin: 01/04/18 12:19 Dose: 650 mg Clonazepam (Klonopin) 0.125 mg PO BID [facility] Last Admin: 01/04/18 09:17 Dose: 0.125 mg Famotidine (Pepcid) 20 mg PO DAILY [facility] Last Admin: 01/04/18 09:05 Dose: 20 mg Isosorbide Mononitrate (Imdur) 30 mg PO DAILY [facility] Last Admin: 01/04/18 09:03 Dose: 30 mg Levothyroxine Sodium (Levothyroxine) 25 mcg PO ACBREAKFAST [facility] Last Admin: 01/04/18 07:40 Dose: 25 mcg Melatonin (Melatonin) 3 mg PO BEDTIME [facility] Last Admin: 01/03/18 20:41 Dose: 3 mg Melatonin (Melatonin) 3 mg PO BEDTIME PRN PRN Reason: Insomnia Metoprolol Tartrate (Lopressor) 25 mg PO BID [facility] Last Admin: 01/04/18 09:04 Dose: 25 mg Polyethylene Glycol (Miralax) 17 gm PO DAILY [facility] Last Admin: 01/04/18 09:04 Dose: 17 gm Potassium Chloride (Klor-Con M20) 20 meq PO DAILY [facility] Last Admin: 01/04/18 09:04 Dose: 20 meq Sodium Chloride (Saline Flush) 10 ml FLUSH ASDIRECTED PRN PRN Reason: Keep Vein Open Last Admin: 01/02/18 17:58 Dose: 10 ml Valsartan (Diovan) 160 mg PO BID [facility] Last Admin: 01/04/18 09:03 Dose: 160 mg Discontinued Medications Albuterol (Ventolin Hfa) 0 gm INH Q4H PRN PRN Reason: Wheezing Stop: 01/03/18 00:10 Atenolol (Tenormin) 25 mg PO BID [facility] Last Admin: 01/03/18 08:18 Dose: 25 mg Hydromorphone HCl (Dilaudid) 0.5 mg IVPUSH ONETIME ONE Stop: 01/02/18 17:22 Last Admin: 01/02/18 18:02 Dose: 0.25 mg Ibuprofen (Motrin) 400 mg PO BID [facility] Melatonin (Melatonin) 5 mg PO BEDTIME PRN PRN Reason: Insomnia Pantoprazole Sodium (Protonix Granules) 40 mg PO DAILY [facility] Prednisone (Prednisone) 5 mg PO DAILY [facility] - Exam General: Reports: Alert, Mild Distress Lungs: Reports: Clear to Auscultation, Normal Respiratory Effort Cardiovascular: Reports: Regular Rate, Regular Rhythm, Murmurs GI/Abdominal Exam: Soft, Non-Tender, No Organomegaly, No Distention *Q Meaningful Use (DIS) - VTE *Q VTE Criteria *Q: - Stroke *Q Stroke Criteria *Q: - AMI *Q AMI Criteria *Q:
[2018-01-04] MEDS: Melatonin 3 MG Tab PO SCH (20:47)
[2018-01-05] MEDS: Metoprolol Tartrate 25 MG Tab PO SCH (08:43)
[2018-01-05] MEDS: Levothyroxine 25 MCG Tab PO SCH (08:43)
[2018-01-05] MEDS: Potassium Chloride 20 MEQ Tab.ER PO SCH (08:43)
[2018-01-05] MEDS: Famotidine 20 MG Tab PO SCH (08:43)
[2018-01-05] MEDS: Isosorbide Mononitrate 30 MG Tab.ER PO SCH (08:43)
[2018-01-05] MEDS: Polyethylene Glycol 3350 Powder 17 GM Packet PO SCH (08:44)
[2018-01-05] MEDS: Acetaminophen 325 MG Tab PO PRN (08:49)
[2018-01-05] MEDS: ClonazePAM 0.5 MG Tab PO SCH (08:49)
--- NOTE | 2018-01-05 09:00 | CR ---
Hip Min 2V or 3V w Pelvis Lt INDICATION: pain in rt pelvis nd hip. COMPARISON: None FINDINGS: 3 views. Study somewhat suboptimal due to patient body habitus and technique. No definite fractures seen.
[2018-01-05 10:38] VITALS: BP 126/60
== END 2018-01-05 14:50 | DRG 536 ==
LOC: JP.ED 16:50 → JP.MS 22:15
PROVIDERS: ADMIT Family Medicine; ATTEND Hospitalist
PROC: 2W39X1Z Immobilization of Left Upper Extremity using Splint (ICD-10-PCS; principal; 2018-01-02)
DX: S32.591A Other specified fracture of right pubis, initial encounter for closed fracture (principal); S42.442A Displaced fracture (avulsion) of medial epicondyle of left humerus, initial encounter for closed fracture; I13.0 Hypertensive heart and chronic kidney disease with heart failure and stage 1 through stage 4 chronic kidney disease, or unspecified chronic kidney disease; S32.511A Fracture of superior rim of right pubis, initial encounter for closed fracture; J44.9 Chronic obstructive pulmonary disease, unspecified; E03.9 Hypothyroidism, unspecified; E11.40 Type 2 diabetes mellitus with diabetic neuropathy, unspecified; I50.9 Heart failure, unspecified; Z87.891 Personal history of nicotine dependence; W19.XXXA Unspecified fall, initial encounter; Y92.002 Bathroom of unspecified non-institutional (private) residence as the place of occurrence of the external cause; N18.3 Chronic kidney disease, stage 3 (moderate); G30.9 Alzheimer's disease, unspecified; F02.80 Dementia in other diseases classified elsewhere, unspecified severity, without behavioral disturbance, psychotic disturbance, mood disturbance, and anxiety; I48.2 Chronic atrial fibrillation; Z79.01 Long term (current) use of anticoagulants; F41.0 Panic disorder [episodic paroxysmal anxiety]; Z86.73 Personal history of transient ischemic attack (TIA), and cerebral infarction without residual deficits; F41.9 Anxiety disorder, unspecified; M06.9 Rheumatoid arthritis, unspecified; M81.0 Age-related osteoporosis without current pathological fracture; M19.90 Unspecified osteoarthritis, unspecified site; M54.9 Dorsalgia, unspecified; G89.29 Other chronic pain; Z87.440 Personal history of urinary (tract) infections; Z95.0 Presence of cardiac pacemaker; H54.7 Unspecified visual loss; I49.5 Sick sinus syndrome; Z79.52 Long term (current) use of systemic steroids; Z88.2 Allergy status to sulfonamides; Z88.8 Allergy status to other drugs, medicaments and biological substances; E11.51 Type 2 diabetes mellitus with diabetic peripheral angiopathy without gangrene; E11.22 Type 2 diabetes mellitus with diabetic chronic kidney disease; R53.1 Weakness
CPT/HCPCS: 36415; 72192; 73080; 73502 ×2; 80053; 85025; 96374; 99285; J1170; J7050; 85610; 97110-GP; 97162-GP; 97530-GP; A9270-GY